=== PATIENT | female | born 1970 | race Two or more races ===

== ENCOUNTER 2017-08-26 00:07 | Emergency (ER) | payer MEDICAID, OTHER ==
[~2017-08-26] VITALS: Ht 154.9 cm; Wt 113.4 kg
[~2017-08-26 00:07] MED LIST: ALBUTEROL SULF8.5 GM INH; CIPRO500 MG PO; FLAGYL250 MG ORAL; NORCO 5-325 TA1 EACH ORAL
[2017-08-26 00:40] VITALS: BP 146/88
[2017-08-26] MEDS ORDERED: Albuterol/Ipratropium 3ml neb HHN ONE (00:45)
[2017-08-26] MEDS ORDERED: PREDNISONE20 MG ORAL (01:32)
[2017-08-26 01:40] VITALS: BP 146/88
--- NOTE | 2017-08-26 02:15 | Emergency Room Report ---
History of Present Illness General Chief Complaint: Upper Respiratory Illness Source: Patient Present Illness HPI Patient's 47-year-old female presented after increased cough with associated sore throat. She gradual onset of symptoms. Patient reported having increased nasal congestion. She reported having prior history of asthma. She reportedly takes albuterol Allergies: Coded Allergies: No Known Allergies (Unverified , 07/12/14) Patient History Past Medical History: see triage record Last Menstrual Period: None Now: No Reviewed Nursing Documentation: PMH: Agreed, PSxH: Agreed Nursing Documentation-PMH Hx Hypertension: Yes Hx Asthma: Yes Review of Systems All Other Systems: negative except mentioned in HPI Physical Exam Vital Signs Date Time Temp Pulse Resp B/P (MAP) Pulse Ox O2 Delivery O2 Flow Rate FiO2 08/26/17 00:16 97.7 93 24 146/88 97 Room Air 08/26/17 01:07 21 General Appearance: well appearing, no apparent distress, alert, GCS 15, non- toxic Head: normocephalic, atraumatic ENT: hearing grossly normal, normal voice Neck: full range of motion, supple Respiratory: no rhonchi, no respiratory distress, speaking full sentences, wheezing - mild expiratory wheezing Cardiovascular #1: normal peripheral pulses, regular rate, rhythm, no edema Gastrointestinal: normal inspection Musculoskeletal: normal inspection, digits/nails normal, no calf tenderness Neurologic: normal gait Psychiatric: mood/affect normal Skin: no rash Medical Decision Making Diagnostic Impression: Primary Impression: Asthma exacerbation ER Course Patient presented for cough. Differential diagnosis included but was not limited to bronchitis, pneumonia, pulmonary embolism, pericarditis, asthma, foreign body. Patient is given nebulized albuterol with improvement. Repeat lung exam showed improved breath sounds.Patient's given prescription for steroids. Patient does not appear to have pneumonia and does not appear to require hospitalization at this time. Chest x-ray one view interpreted by me showed normal cardiac size without evident infiltrate no pneumothorax. The patient is advised to follow up with primary care doctor in 1-2 days. Patient is advised to return if any worsening condition or if any changes in status that are concerning. This report is dictated with [employer] door to door lead generation software which may occasionally lead to discrepancies related to use of this software. Last Vital Signs Date Time Temp Pulse Resp B/P (MAP) Pulse Ox O2 Delivery O2 Flow Rate FiO2 08/26/17 01:40 97.7 18 146/88 99 Room Air 21 1/23/18 01:16 85 Status: improved Disposition: HOME, SELF-CARE Condition: Stable Scripts Prednisone* (PREDNISONE*) 20 Mg Tablet 40 MG ORAL DAILY, #10 TAB Prov: Darien Portillo 08/26/17 Referrals: NON PHYSICIAN Patient Instructions: Asthma, Adult Darien Portillo Aug 26, 2017 02:15
--- NOTE | 2017-08-26 12:38 | Diagnostic Imaging Report ---
Indication: Shortness of breath Technique: One view of the chest Comparison: 06/06/2015 Findings: Lungs and pleural spaces are clear. Heart size is normal. No significant change Impression: No acute process
== END 2017-08-26 01:40 | disposition home or self-care (01) ==
LOC: EMR 00:25
DX: J45.901 Unspecified asthma with (acute) exacerbation (principal); I10 Essential (primary) hypertension
CPT/HCPCS: 71045; 94644; 94664; 99283; J7620

== ENCOUNTER 2020-07-18 12:06 | Emergency (ER) | payer MEDICAID ==
[~2020-07-18] VITALS: Ht 154.9 cm; Wt 117.9 kg
[~2020-07-18 12:06] MED LIST changes: +PREDNISONE20 MG ORAL
[2020-07-18 12:21] VITALS: BP 128/78
--- NOTE | 2020-07-18 12:21 | NUR ---
ED Nurse Note: Patient from home and walked in due to left side CP with SOB and dizzienss x 2 days. Pt had negative covid test yesterday. Denies coughing or fever. Pt states history of asthma. Patient is AAO x4, follows commands with mild SOB. Sats 98-100% in room air.
[2020-07-18] MEDS ORDERED: Ketorolac 30mg Inj IV ONE (12:45)
--- NOTE | 2020-07-18 12:48 | Emergency Room Report ---
History of Present Illness General Chief Complaint: Chest Pain Source: Patient Present Illness HPI Patient presents with 2 days of chest pain. She feels it left-sided and was radiating to her shoulder and up into her neck. She also feels some dizziness with this. Not vertigo but more that she might pass out. She's not been eating well. The pain is worse when she lays down at night. Right now she rates the pain 5/10. She describes it as aching. She denies any nausea, indigestion, acid or diarrhea. Tested negative for Covid yesterday. She denies any cough. Patient has a history of asthma. She has used her inhaler but this has not helped. She has not heard herself wheezing. She has had some increased stress recently. Risk factors for cardiac disease: Family history, hypertension The patient also has carpal tunnel syndrome bilaterally. 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 No sore throat, palpitations, nausea, vomiting, diarrhea, dysuria, abdominal pain, rashes, visual changes, headache. 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 COVID-19 Screening: Positive COVID-19 COVID-19 Testing Source: nasal Patient History Past Medical History: see triage record, HTN, asthma Pertinent Family History: other - heart disease Social History: Reports: alcohol use - Rare; Denies: smoking, drug use Social History Narrative , 14 yo and 20 yo at home Last Menstrual Period: 10 years ago Now: No Reviewed Nursing Documentation: PMH: Agreed; PSxH: Agreed Nursing Documentation-PMH Past Medical History: No History, Except For Hx Hypertension: Yes Hx Asthma: Yes Review of Systems All Other Systems: negative except mentioned in HPI Physical Exam Vital Signs Date Time Temp Pulse Resp B/P (MAP) Pulse Ox O2 Delivery O2 Flow Rate FiO2 07/18/20 12:11 98.6 66 18 145/77 (99) 97 Room Air Sp02 EP Interpretation: reviewed, normal General Appearance: well appearing, no apparent distress, GCS 15, non-toxic, obese Head: normocephalic, atraumatic Eyes: bilateral eye normal inspection, bilateral eye PERRL, bilateral eye EOMI ENT: moist mucus membranes - Slightly dry Neck: supple Respiratory: lungs clear, normal breath sounds, other - Minimal chest wall tenderness Cardiovascular #1: regular rate, rhythm, no edema Cardiovascular #2: 2+ radial (R) Gastrointestinal: normal bowel sounds, non tender, soft, overweight Genitourinary: no CVA tenderness Musculoskeletal: back normal, no calf tenderness, gait/station normal Neurologic: alert, oriented x3, grossly normal Psychiatric: mood/affect normal - Slightly anxious Skin: no rash, warm/dry Medical Decision Making Diagnostic Impression: Primary Impression: Chest pain Qualified Codes: R07.9 - Chest pain, unspecified Additional Impressions: Elevated liver enzymes Stress ER Course Patient with history of hypertension and asthma Zentz with left-sided chest pain. Differential includes acute myocardial infarction, pulmonary embolus, COVID-19, costochondritis, GERD amongst others. She does have cardiac risk factors. Her history and physical are against this being a pulmonary embolus. She tested negative for Covid yesterday. Evaluation with EKG, chest x-ray and l abs. Patient placed on farm consultant. Patient treated with Pepcid and Toradol. EKG normal sinus rhythm normal EKG. Chest x-ray normal. CBC normal. CMP with elevated liver function tests. Patient improved with treatment. Pain is decreased. Discussed results with patient. Patient seems quite anxious at this time. Discussed possible stressors. Discussed prescription with Ativan. Discussed the need for outpatient follow-up with her own physician. Patient stable for outpatient observation and treatment. At the time of this report the BNP was still pending. The report will stay open until this was resulted. BNP = 51 Laboratory Tests Test 07/18/20 12:45 07/18/20 13:10 White Blood Count 7.5 K/UL (4.8-10.8) Red Blood Count 4.86 M/UL (4.20-5.40) Hemoglobin 14.9 G/DL (12.0-16.0) Hematocrit 44.0 % (37.0-47.0) Mean Corpuscular Volume 91 FL (80-99) Mean Corpuscular Hemoglobin 30.6 PG (27.0-31.0) Mean Corpuscular Hemoglobin Concent 33.7 G/DL (32.0-36.0) Red Cell Distribution Width 12.5 % (11.6-14.8) Platelet Count 201 K/UL (150-450) Mean Platelet Volume 7.8 FL (6.5-10.1) Neutrophils (%) (Auto) 55.5 % (45.0-75.0) Lymphocytes (%) (Auto) 35.1 % (20.0-45.0) Monocytes (%) (Auto) 5.1 % (1.0-10.0) Eosinophils (%) (Auto) 3.0 % (0.0-3.0) Basophils (%) (Auto) 1.3 % (0.0-2.0) Prothrombin Time 11.0 SEC (9.30-11.50) Prothrombin Time INR 1.0 (0.9-1.1) Activated Partial Thromboplast Time 30 SEC (23-33) D-Dimer 0.24 mg/L FEU (0.00-0.49) Sodium Level 138 MMOL/L (136-145) Potassium Level 3.5 MMOL/L (3.5-5.1) Chloride Level 102 MMOL/L (98-107) Carbon Dioxide Level 29 MMOL/L (21-32) Anion Gap 7 mmol/L (5-15) Blood Urea Nitrogen 12 mg/dL (7-18) Creatinine 0.6 MG/DL (0.55-1.30) Estimated Glomerular Filtration Rate > 60 mL/min (>60) Glucose Level 97 MG/DL (74-106) Lactic Acid Level 1.10 mmol/L (0.4-2.0) Calcium Level 8.4 MG/DL (8.5-10.1) L Ferritin 374 NG/ML (8-388) Total Bilirubin 0.9 MG/DL (0.2-1.0) Aspartate Amino Transferase (AST) 167 U/L (15-37) H Alanine Aminotransferase (ALT) 212 U/L (12-78) H Alkaline Phosphatase 130 U/L (46-116) H Lactate Dehydrogenase 246 U/L (81-234) H Total Creatine Kinase 74 U/L (26-308) Troponin I 0.000 ng/mL (0.000-0.056) C-Reactive Protein, Quantitative 1.2 mg/dL (0.00-0.90) H Pro-B-Type Natriuretic Peptide Pending Total Protein 7.7 G/DL (6.4-8.2) Albumin 3.6 G/DL (3.4-5.0) Globulin 4.1 g/dL Albumin/Globulin Ratio 0.9 (1.0-2.7) L Lipase 102 U/L (73-393) Urine Color Pale yellow Urine Appearance Clear Urine pH 7 (4.5-8.0) Urine Specific [place] 1.005 (1.005-1.035) Urine Protein Negative (NEGATIVE) Urine Glucose (UA) Negative (NEGATIVE) Urine Ketones Negative (NEGATIVE) Urine Blood Negative (NEGATIVE) Urine Nitrite Negative (NEGATIVE) Urine Bilirubin Negative (NEGATIVE) Urine Urobilinogen Normal MG/DL (0.0-1.0) Urine Leukocyte Esterase Negative (NEGATIVE) EKG Diagnostic Results Troponin ordered: Yes Rate: normal Rhythm: NSR ST Segments: no acute changes Rhythm Strip Diag. Results EP Interpretation: yes Rhythm: NSR, no PVC's, no ectopy Chest X-Ray Diagnostic Results Chest X-Ray Diagnostic Results : Chest X-Ray Ordered: Yes # of Views/Limited/Complete: 1 View Indication: Chest Pain EP Interpretation: Yes Interpretation: no consolidation, no effusion, no pneumothorax Impression: No acute disease Electronically Signed by: Electronically signed by Derrick Daugherty MD Last Vital Signs Date Time Temp Pulse Resp B/P (MAP) Pulse Ox O2 Delivery O2 Flow Rate FiO2 07/18/20 14:07 97.9 58 16 120/57 100 Room Air Status: improved Disposition: HOME, SELF-CARE Condition: Improved Scripts Lorazepam* (ATIVAN*) 0.5 Mg Tablet 0.5 MG ORAL THREE TIMES A DAY, #6 TAB Try to take less than 3 times a week. Try 1/2 tablet at a time. Prov: Derrick Daugherty MD 07/18/20 Famotidine* (Pepcid 20mg tablet*) 20 Mg Tablet 20 MG ORAL DAILY for Gerd, #20 TAB 0 Refills Prov: Derrick Daugherty MD 07/18/20 Ibuprofen* (MOTRIN*) 600 Mg Tablet 600 MG ORAL Q6H PRN for FOR PAIN, #20 TAB 0 Refills Prov: Derrick Daugherty MD 07/18/20 [facility]ERRING (PCP) Derrick Daugherty MD Jul 18, 2020 12:48
--- NOTE | 2020-07-18 13:04 | NUR ---
ED Nurse Note: Collected blood specimen then sent.
[2020-07-18 13:13] LABS: BASOPHILS % (AUTO) 1.3 % (0.0-2.0); HEMOGLOBIN 14.9 G/DL (12.0-16.0); LYMPHOCYTES % (AUTO) 35.1 % (20.0-45.0); MEAN CORPUSCULAR VOLUME 91 FL (80-99); MONOCYTES % (AUTO) 5.1 % (1.0-10.0); NEUTROPHILS % (AUTO) 55.5 % (45.0-75.0); PLATELET COUNT 201 K/UL (150-450); RED BLOOD COUNT 4.86 M/UL (4.20-5.40); RED CELL DISTRIBUTION WIDTH 12.5 % (11.6-14.8); WHITE BLOOD COUNT 7.5 K/UL (4.8-10.8)
--- NOTE | 2020-07-18 13:15 | NUR ---
ED Nurse Note: Patient is resting on bed with no respiratory distress. Sats 100 % in room air. Patient is using her phone while resting.
[2020-07-18 13:22] LABS: ANION GAP 7 mmol/L (5-15); BLOOD UREA NITROGEN 12 mg/dL (7-18); CALCIUM 8.4 MG/DL (8.5-10.1); CARBON DIOXIDE 29 MMOL/L (21-32); CHLORIDE 102 MMOL/L (98-107); CREATININE 0.6 MG/DL (0.55-1.30); POTASSIUM 3.5 MMOL/L (3.5-5.1); SODIUM 138 MMOL/L (136-145)
[2020-07-18 13:27] LABS: APPEARANCE,URINE CLEAR; BILIRUBIN, URINE NEGATIVE (NEGATIVE); COLOR,URINE PALE YELLOW; GLUCOSE, URINE (UA) NEGATIVE (NEGATIVE); KETONES,URINE NEGATIVE (NEGATIVE); LEUKOCYTE ESTERASE ,URINE NEGATIVE (NEGATIVE); NITRITE,URINE NEGATIVE (NEGATIVE); PH,URINE 7 (4.5-8.0); PROTEIN,URINE NEGATIVE (NEGATIVE); UROBILINOGEN,URINE NORMAL MG/DL (0.0-1.0)
[2020-07-18 13:38] LABS: ALANINE AMINOTRANSFERASE 212 U/L (12-78); ALBUMIN 3.6 G/DL (3.4-5.0); ALBUMIN/GLOBULIN RATIO 0.9 (1.0-2.7); ALKALINE PHOSPHATASE 130 U/L (46-116); ASPARTATE AMINO TRANSFERASE 167 U/L (15-37); BILIRUBIN,TOTAL 0.9 MG/DL (0.2-1.0); CREATINE KINASE 74 U/L (26-308); FERRITIN 374 NG/ML (8-388); LACTATE DEHYDROGENASE 246 U/L (81-234)
[2020-07-18] MEDS ORDERED: FAMOTIDINE20 MG ORAL (13:58)
[2020-07-18] MEDS ORDERED: IBUPROFEN600 M1 ORAL (13:58)
[2020-07-18] MEDS ORDERED: ATIVAN0.5 MG ORAL (13:58)
[2020-07-18 14:07] VITALS: BP 120/57
--- NOTE | 2020-07-18 14:07 | NUR ---
ER DISCHARGE NOTE: Patient is cleared to be discharged per ERMD, pt is aox4, on room air, with stable vital signs. pt was given dc and prescription instructions, pt was able to verbalize understanding, pt id band and iv site removed without complications. pt is able to ambulate with steady gait. pt took all belongings.
--- NOTE | 2020-07-18 15:05 | Diagnostic Imaging Report ---
Indication: Chest pain Technique: One view of the chest Comparison: 08/26/2017 Findings: Body habitus limits evaluation. The heart is upper limits of normal in size. No definite acute infiltrates, effusions, or congestion. Impression: No definite acute process
== END 2020-07-18 14:07 | disposition home or self-care (01) ==
LOC: EMR 12:29
DX: R07.9 Chest pain, unspecified (principal); F43.9 Reaction to severe stress, unspecified; R94.5 Abnormal results of liver function studies; I10 Essential (primary) hypertension; J45.909 Unspecified asthma, uncomplicated; Z79.899 Other long term (current) drug therapy
CPT/HCPCS: 36415; 71045; 80053; 81003; 82550; 82728; 83605; 83615; 83690; 83880; 84484; 85025; 85379; 85610; 85730; 86140; 93005; 96374; 96375; J1885; S0028; Z7502; 99284